=== PATIENT | female | born 1980 | race Caucasian/White ===

== ENCOUNTER 2017-07-03 08:31 | Day surgery (SDC) | payer OTHER ==
[~2017-07-03] VITALS: Ht 154.9 cm; Wt 68.5 kg
[2017-07-03 09:16] VITALS: BP 110/67; PULSE 73; TEMP 98.5
[2017-07-03] MEDS ORDERED: PRENATAL1 TA7 PO (09:22)
[2017-07-03] MEDS ORDERED: VITAMIN C500 MG PO (09:22)
[2017-07-03] MEDS ORDERED: VITAMIN D32000 I1 PO (09:23)
[2017-07-03] MEDS ORDERED: VITAMIN B-6100 MG PO (09:24)
[2017-07-03] MEDS ORDERED: IBU800 M1 PO (11:43)
[2017-07-03] MEDS ORDERED: DOXYCYCLINE HY100 MG PO (11:44)
[2017-07-03] MEDS ORDERED: METHERGINE0.2 MG/TAB PO (11:44)
[2017-07-03 11:45] VITALS: BP 108/68; PULSE 72; TEMP 98.4
[2017-07-03 12:00] VITALS: BP 110/71; PULSE 65
[2017-07-03 12:15] VITALS: BP 113/66; PULSE 63
[2017-07-03] MEDS ORDERED: TYLENOL 325MG325 MG PO (12:21)
[2017-07-03 12:30] VITALS: BP 113/64; PULSE 61
== END 2017-07-03 14:00 | disposition home or self-care (01) ==
LOC: SDCO 08:31
DX: O02.1 Missed abortion (principal); Z3A.01 Less than 8 weeks gestation of pregnancy; O09.521 Supervision of elderly multigravida, first trimester; Z78.9 Other specified health status; Z82.79 Family history of other congenital malformations, deformations and chromosomal abnormalities
CPT/HCPCS: J2405; J2704; J3010; J7120

== ENCOUNTER → 2018-06-14 | Outpatient (CLI) | payer SELFPAY ==
[~2018-06-14] MED LIST: DOXYCYCLINE HY100 MG PO; IBU800 M1 PO; METHERGINE0.2 MG/TAB PO; PRENATAL1 TA7 PO; TYLENOL 325MG325 MG PO; VITAMIN B-6100 MG PO; VITAMIN C500 MG PO; VITAMIN D32000 I1 PO
== END ==
LOC: SUN.DIA 09:43
DX: O24.419 Gestational diabetes mellitus in pregnancy, unspecified control (principal); Z3A.30 30 weeks gestation of pregnancy
CPT/HCPCS: G0108

== ENCOUNTER → 2018-06-27 | Outpatient (CLI) | payer SELFPAY | LOC: SUN.DIA 08:43 | DX: O24.419 Gestational diabetes mellitus in pregnancy, unspecified control (principal); Z3A.32 32 weeks gestation of pregnancy | CPT/HCPCS: G0108 ==

== ENCOUNTER 2018-08-12 08:27 | Inpatient (IN) | payer OTHER ==
[~2018-08-12] VITALS: Ht 154.9 cm; Wt 89.5 kg
[2018-08-12] VITALS (28 sets, daily range): BP systolic 107–134; BP diastolic 55–77; PULSE 64–90; TEMP 98.2–98.7
--- NOTE | 2018-08-12 08:35 | NUR ---
Pt here from ER with c/o contractions since this AM. PT to room LDR 3 and to [facility], explained. SVE: /-2, bag of an palpated per Sergey RN. Pt states baby is active, denies any vaginal bleeding or leaking of fluid. Assessment complete. Pt with hx of Gest DM, diet controlled. Pt states AM blood sugar was 90. Dr Cassidy here and updated. Orders received to admit. IV started to left wrist. Lab drawn from IV site then LR infusing without difficulty. Pt requesting epidural. Erlinda BUSTAMANTE called.
--- NOTE | 2018-08-12 09:10 | NUR ---
Pt sitting upright for epidural placement. Difficulty tracing FHR due to maternal position. RN at bedside adjusting monitors. FHR audible. 0921-Test dose administered by Corona Paige CRNA. No adverse effects noted. See anesthesia record. 1918-Pt repositioned WL. Updated on plan of care. Safety reviewed. No questions or concerns at this time.
[2018-08-12 09:16] LABS: BASO % 0.2 % (0.0-2.0); EOS # 0.1 (0.0-0.7); EOS % 0.8 % (0-4.0); GRAN # 5.8 (1.4-6.5); GRAN % 68.8 % (42.2-75.2); HEMATOCRIT 40.7 % (37.0-47.0); LYMPH % 23.9 % (20.0-51.0); MEAN CELL VOLUME 85 fl (80.0-100.0); MEAN CORPUSCULAR HEMOGLOBIN 29 pg (27.0-31.0); MEAN CORPUSCULAR HGB CONC 34 g/dl (33.0-37.0); MEAN PLATELET VOLUME 11.2 fl (7.4-10.4); MONO # 0.5 (0.1-0.6); MONO % 6.1 % (1.7-9.3); PLATELET COUNT 177 K/mm3 (130-400)
--- NOTE | 2018-08-12 09:45 | NUR ---
Report from Feliciano Nava RN and care of patient assumed. Patient resting comfortably in LL position. Denies questions or concerns.
--- NOTE | 2018-08-12 10:10 | NUR ---
SVE unchanged. Mesa catheter placed without difficulty per protocol. Pericare given and patient repositioned high talavera's to promote descent. Encouraged to notify RN with increased pressure. Call light in reach. Comfortable with epidural.
--- NOTE | 2018-08-12 11:00 | NUR ---
Patient requesting to use own blood glucose monitoring machine. BG checked- 89. Will update physician when on unit.
--- NOTE | 2018-08-12 11:45 | NUR ---
Dr. Cassidy at bedside. Discussing AROM with patient, agrees. SVE per provider /-2. AROM by Dr. Cassidy for moderate amount of thick meconium fluid. Pericare given and underpads changed. Patient updated on plan of care.
--- NOTE | 2018-08-12 13:30 | NUR ---
Patient reports increased pressure with contractions. SVE 9/100/0 with cervix noted on left side. Pericare given, patient repositioned LL and encouraged to notify RN with increased pressure or pain. Will update physician.
--- NOTE | 2018-08-12 13:50 | NUR ---
1350- Patient reporting increased pressure. SVE 10/+2. Reports urge to push. Dr. Cassidy notified and requested for impending delivery. RN remains at bedside. Mesa catheter removed prior to delivery, periprep completed. 1404- Dr. Cassidy at bedside for delivery. Nursery RN to bedside. Assisted to foot plates and prepped for delivery. 1405- Patient begins pushing with contractions with physician at bedside. Patient moves vertex well. 1406- of viable female attended by Dr. Cassidy. to mother's abdomen then to warmer for evaluation. Care of to Tarik Galvez RN. Apgars 9/9/9. Cord gasses drawn and sent per protocol for thick meconium. 1411- Spont. delivery of placenta. Pitocin bolus started at 333ml/hr/protocol. Fundal massage by RN, firm and at umbilicus. Second degree perineal laceration repaired by physician, patient tolerates well. Vaginal bleeding WNL. Pericare given and ice pack to perineum. Post delivery counts correct. Patient updated on plan of care and safety.
--- NOTE | 2018-08-12 14:50 | NUR ---
Orders to d/c blood glucose checks per Dr. Cassidy. Patient may eat regular diet.
--- NOTE | 2018-08-12 20:00 | NUR ---
Up to bathroom with careful steady gait. Moderate free flow without clots. Voids large amount, performs own pericare. Back to bed without difficulty. Reminded to call for assistance next time needs to get up to void. Baby placed in bed with mom. Mom reminded that is not to be in bed with her if she is sleeping, verbalizes understanding.
[2018-08-13 08:45] VITALS: BP 112/71; PULSE 79; TEMP 98.1
--- NOTE | 2018-08-13 09:04 | NUR ---
Initial visit; Patient and thanked [employer] for offering congratulations and God's blessings to her family for the of her daughter. Belt Weaver thanked Mami for choosing [facility].
[2018-08-13] MEDS ORDERED: IBU800 M1 PO (10:57)
[2018-08-13] MEDS ORDERED: PERCOCET 325 MG1 TA2 PO (10:58)
== END 2018-08-13 17:30 | disposition home or self-care (01) | DRG 807 ==
LOC: LDRO 08:27 → OB 09:00 → LDR 09:00 → OB 17:27
PROVIDERS: Obstetrics & Gynecology; ADMIT Student in an Organized Health Care Education/Training Program
PROC: 10E0XZZ Delivery of Products of Conception, External Approach (ICD-10-PCS; principal; 2018-08-12)
PROC: 0KQM0ZZ Repair Perineum Muscle, Open Approach (ICD-10-PCS; 2018-08-12)
DX: O24.420 Gestational diabetes mellitus in childbirth, diet controlled (principal); Z37.0 Single live birth; Z3A.38 38 weeks gestation of pregnancy; O70.1 Second degree perineal laceration during delivery; O77.0 Labor and delivery complicated by meconium in amniotic fluid; Z88.0 Allergy status to penicillin
CPT/HCPCS: J2590; J7120